=== PATIENT | female | born 1980 | race Caucasian/White ===

== ENCOUNTER 2025-01-23 10:51 | Inpatient (IN) | payer MEDICAID ==
[~2025-01-23] VITALS: Ht 157.5 cm; Wt 135.0 kg
--- NOTE | 2025-01-23 11:02 | ELECTROCARDIOGRAPH REPORT ---
[facility] Test Date: 2025-01-23 Test Time: 11:00:58 Pat Name: SANTO FAYE Department: EMERGENCY ROOM Room: Gender: F Parts Sales Counterperson: BRY : 1980 Requested By: AMARI GARCIA Order Number: [id number] Reading MD: Measurements Intervals [place] Rate: 71 P: 34 CT: 150 QRS: 27 QRSD: 89 T: 56 QT: 415 QTc: 451 Interpretive Statements Sinus rhythm Abnormal R-wave progression, early transition Borderline T wave abnormalities Please click the below link to view image of tracing.
--- NOTE | 2025-01-23 11:16 | Physician Documentation ---
History of Present Illness ~ Chief Complaint: Chest Pain Stated Complaint: STEMI Time Seen by MD: 10:57 HPI 44-year-old female presenting with chest pain that started last night about 7:00 p.m.. Patient states that she was at home and was not doing anything strenuous when the pain started. Pain is left-sided and radiates up into her neck and her left arm. Patient reports that initially it was severe but now has improved to a more moderate level after she was given pain medication in route to this hospital. The patient was initially seen at [facility] and diagnosed with a NSTEMI. She was given a shot of Lovenox and transferred to this [facility]. She denies any shortness of breath, nausea, vomiting or any other associated symptoms. Medication Reconciliation Allergies: Coded Allergies: Penicillins (Verified Allergy, Severe, ANAPHYLAXIS, 01/23/25) amoxicillin (Verified Allergy, Severe, ANAPHYLAXIS, 01/23/25) Scheduled Buspirone Hcl* (Buspar*), 1.5 TAB PO Q12H, (Reported) Duloxetine HCl (Cymbalta), 1 CAP PO DAILY, (Reported) Empagliflozin (Jardiance), 1 TAB PO DAILY, (Reported) Famotidine (Famotidine), 1 TAB PO DAILY, (Reported) Gabapentin (Neurontin), 3 CAP PO TID, (Reported) Hyoscyamine Sulfate (Anaspaz), 1-2 TAB PO Q4H, (Reported) Insulin Glargine,Hum.rec.anlog (Lantus), 34 UNIT SQ HS, (Reported) Loratadine (Loratadine), 1 TAB PO DAILY, (Reported) Methocarbamol (Methocarbamol), 3 TAB PO Q8H, (Reported) Nicotine 21 MG Patch* (Habitrol 21 MG Patch*), 1 PATCH TOP DAILY, (Reported) Olanzapine (Zyprexa), 1 TAB PO BID, (Reported) Paliperidone Palmitate (Invega Sustenna), 1 SYR IM Q30D, (Reported) Pantoprazole Sodium (PROTONIX tablet), 1 TAB PO BID, (Reported) Ropinirole Hcl (Ropinirole Hcl), 1 TAB PO BID, (Reported) Sumatriptan Succinate* (Imitrex Tab*), 4 TAB PO DAILY, (Reported) Scheduled PRN Acetaminophen (Acetaminophen Extra Strength), 2 TAB PO TID PRN for pain, (Reported) Buspirone Hcl* (Buspar*), 1 TAB PO Q12H PRN for anxiety, (Reported) Ibuprofen (Ibuprofen), 1 TAB PO Q8H PRN for pain, (Reported) Lorazepam (Ativan), 1 TAB PO HS PRN for anxiety, (Reported) Ramelteon (Rozerem), 1 TAB PO HS PRN for sleep, (Reported) albuterol inhaler (Pro-Air Inhaler), 2 PUFFS INH Q4HPRN PRN for wheezing, (Reported) Discontinued Medications Acetazolamide (Acetazolamide), 1 TAB PO Q12H, (Reported) Discontinued Reason: patient no longer taking Amlodipine Besylate (Norvasc), 1 TAB PO DAILY, (Reported) Discontinued Reason: patient no longer taking Capsaicin (Capsaicin), 1 APPLIC TOP TID, (Reported) Discontinued Reason: patient no longer taking Metoclopramide Hcl* (Metoclopramide Hcl*), 1 TAB PO Q6H PRN for nausea/vomiting, (Reported) Discontinued Reason: completed med therapy Naloxone HCl (Naloxone HCl), 1 SPR CAREY PRN PRN for resp rate < 8/min or SBP < 90 , (Reported) Discontinued Reason: completed med therapy Oxycodone HCl (Oxycodone HCl), 0.5 TAB PO BID PRN for pain, (Reported) Discontinued Reason: patient no longer taking Scopolamine Hydrobromide (Transderm-Scop), 1 PATCH TOP Q72H, (Reported) Discontinued Reason: completed med therapy Sumatriptan Succinate* (Imitrex Tab*), 4 TAB PO DAILY PRN for headache, (Reported) Discontinued Reason: wrong med Sumatriptan* (Imitrex Nasal [place] 5mg*), 1 SPRAY NS PRN PRN for headache, (Reported) Discontinued Reason: patient no longer taking Tiotropium [place] (Spiriva), 2 PUFFS INH DAILY, (Reported) Discontinued Reason: patient no longer taking Triamcinolone Acetonide 0.1% Crm* (Kenalog 0.1% Crm*), 1 APPLIC TOP Q12H, (Reported) Discontinued Reason: patient no longer taking Past Medical History Past Medical History: Coronary Artery Disease, Diabetes, Psychosis Review of Systems All Other Systems at this time: Reviewed and Negative Physical Exam Vital Signs: Temperature: 98.4, Source: Oral, Heart Rate: 94, Respiratory Rate: 18, BP: 133/93, Pulse Oximetry: 98, Weight: 135.000 Oxygen Flow Rate: 0 Physical Exam I have reviewed the triage vitals. CONST: Well developed and well nourished. In no acute distress. Morbidly obese. HENT: Head Atraumatic EYES: Pupils are equal, round and reactive to light. Normal conjunctiva NECK: Normal range of motion. Supple. CARDIO: Normal rate and regular rhythm. No murmurs, rubs, or gallops. S1, S2. PULM/CHEST: No respiratory distress. Lungs clear to auscultation. No wheeze ABD: Soft and nontender. Nondistended. Bowel sounds normal. No guarding. : Exam deferred MSK: No edema. No deformity. NEURO: Alert and oriented to person, place and time. Moving all extremities SKIN: Warm and dry. PSYCH: Normal mood and affect. Good eye contact. Progress Results/Orders Results/Orders Orders - AMARI GARCIA MD Chest,Single View (01/23/25 10:53) Monitor (01/23/25 10:53) Saline Lock (01/23/25 10:53) Oxygen (01/23/25 10:53) Cbc/Diff (01/25/25 03:00) Cbc/Diff (01/26/25 03:00) Cbc/Diff (01/27/25 03:00) Cbc/Diff (01/28/25 03:00) Page Hospitalist (01/23/25 13:49) Fill Out Med Reconciliation (01/23/25 13:49) Completed Orders - AMARI GARCIA MD Chest,Single View (01/23/25 10:53) Cbc/Diff (01/23/25 10:53) PBNP (01/23/25 10:53) Electrocardiogram (01/23/25 10:53) Hs Troponin I W Calculations (01/23/25 10:53) Hs Troponin I W Calculations (01/23/25 12:53) Hs Troponin I W Calculations (01/23/25 13:53) CMP (01/23/25 10:57) Pt Inr (01/23/25 10:59) PTT (01/23/25 10:59) Fibrinogen (01/23/25 10:59) Morphine 4mg/Ml Inj. (Morphine Inj.) (01/23/25 11:20) Ondansetron Inj. (Zofran 4mg/2ml Vial) (01/23/25 11:20) Heparin 10,000 Unit/Ml 1ml (Heparin 10,0 (01/23/25 11:20) Heparin 25,000 Unit/250ml Bag (Heparin 2 (01/23/25 11:20) Heparin 10,000 Unit/Ml 1ml (Heparin 10,0 (01/23/25 11:20) Cbc/Diff (01/24/25 03:00) Clopidogrel Tablet (Plavix Tablet) (01/23/25 11:20) Aspirin 325mg Enteric-Coated (Ecotrin 32 (01/23/25 11:20) Message To Nursing (01/23/25 11:50) Cardiac Ptt (01/23/25 18:00) Hgb A1c (01/23/25 11:12) Vital Signs 01/23/25 01/23/25 01/23/25 01/23/25 10:58 11:13 11:48 12:12 Temp 98.4 Pulse 94 77 Resp 18 18 16 B/P (MAP) 133/93 107/77 (87) Pulse Ox 98 95 O2 Flow Rate 0 0 01/23/25 01/23/25 12:40 13:46 Pulse 98 Resp 18 13 B/P (MAP) 140/73 (95) Pulse Ox 94 O2 Flow Rate 0 Laboratory Tests Test 01/23/25 11:12 01/23/25 12:38 01/23/25 14:13 White Blood Count 6.9 Red Blood Count 4.41 Hemoglobin 13.8 Hematocrit 40.5 Mean Corpuscular Volume 91.9 Mean Corpuscular Hemoglobin 31.2 H Mean Corpuscular Hemoglobin Concent 34.0 Red Cell Distribution Width 13.4 Platelet Count 239 Mean Platelet Volume 8.5 Neutrophils (%) (Auto) 53.7 Lymphocytes (%) (Auto) 37.5 Monocytes (%) (Auto) 6.1 Eosinophils (%) (Auto) 1.8 Basophils (%) (Auto) 0.9 Neutrophils # (Auto) 3.7 Lymphocytes # (Auto) 2.6 Monocytes # (Auto) 0.4 Eosinophils # (Auto) 0.1 Basophils # (Auto) 0.1 CBC Comment Prothrombin Time 9.8 INR International Normalized Ratio 1.0 Activated Partial Thromboplast Time 30 Fibrinogen 347 Coagulation Comments Coagulation Clinical Comments Sodium Level 137 Potassium Level 4.1 Chloride Level 107 Carbon Dioxide Level 22.6 L Anion Gap 7 L Blood Urea Nitrogen 8 Creatinine 0.60 Estimated GFR/1.73 m2 > 90 BUN/Creatinine Ratio 13.3 Glucose Level 148 H Hemoglobin A1c 8.1 H Calcium Level 8.6 Total Bilirubin 0.3 Aspartate Amino Transf (AST/SGOT) 24 Alanine Aminotransferase (ALT/SGPT) 35 Alkaline Phosphatase 104 Troponin I High Sensitivity 23 21 18 Pro-B-Type Natriuretic Peptide 51 Total Protein 7.1 Albumin 3.2 L Globulin 3.9 Albumin/Globulin Ratio 0.8 L Chemistry Comments Troponin I High Sens Percent Delta 8 14 Troponin I Hi Sens Absolute Change -2 -3 APTT (Heparin Protocol) 43 L EKG/XRAY/CT/US/VASC/MRI EKG : Additional Comment EKG as interpreted by ED MD indicating normal sinus rhythm with a rate of 71 beats per minute, no signs of ischemia, normal axis Medical Decision Making Additional Information 44-year-old female presenting via transfer for a NSTEMI. Patient initially had chest pain which has improved in the ED after she was giving pain medication and route. Patient had some continued chest pain here and was given a further 4 mg of IV morphine as well as 4 mg of IV ondansetron. Prior to arrival at previous hospital the patient had elevated troponins and was given a Lovenox injection. A CT angiogram also was done there which was negative for any PE. We started the patient on a heparin drip. She was also given 325 mg of aspirin as well as 300 mg of Plavix p.o.. Her lab work here return unremarkable with normal troponins. The heparin was stopped due to the normal troponins however the patient still needs admission for further treatment and care - cardiac evaluation and risk stratification. Report called to hospitalist team who accepted the patient. Departure Disposition: ADMITTED INPATIENT Admission Level of Care: Med/Surg with Tele Impression: Primary Impression: Chest pain Additional Impression: Unstable angina Condition: Guarded Referrals: NO PRIMARY CARE PROVIDER (PCP) Signature Scribe Signature: 1 Attestation: 1 AMARI GARCIA MD Jan 23, 2025 11:16
[2025-01-23] MEDS ORDERED: heparin 10,000 units/1 ML INJ IV PRN (11:20)
[2025-01-23 11:32] LABS: MEAN PLATELET VOLUME 8.5 FL (7.4-10.4); RED CELL DISTRIBUTION WIDTH 13.4 % (11.5-14.5)
--- NOTE | 2025-01-23 11:46 | RADIOLOGY REPORT ---
CHEST RADIOGRAPH Indication: CP Technique: Single frontal view of the chest was obtained COMPARISON: None FINDINGS: Lines and Tubes: None Lungs: Clear Pleura: No effusion. No pneumothorax. Cardiomediastinal contours: Unremarkable Bones: Unremarkable IMPRESSION: No acute disease.
[2025-01-23 11:48] LABS: APTT 30 SECONDS (22-32); INR 1.0 INR
[2025-01-23] MEDS: morphine 4 MG/ML inj SYRINge IV ONE (11:48)
[2025-01-23] MEDS: ondansetron/PF 4mg/2ml inj IV ONE (11:48)
[2025-01-23] MEDS: heparin 25,000 UNIT/250ml bag 250 ML IV PRN (12:04)
[2025-01-23] MEDS: heparin 10,000 units/1 ML INJ IV ONE (12:05)
[2025-01-23] MEDS: MESSAGE TO NURSING IV ONE (12:07)
[2025-01-23] MEDS: aspirin 325mg tablet, delayed-release (Ecotrin) PO ONE (12:10)
[2025-01-23 12:11] LABS: CREATININE 0.60 MG/DL (0.40-0.90); TOTAL CARBON DIOXIDE 22.6 MMOL/L (24-32); eCRCL 96 ML/MIN; eGFR > 90 ML/MIN
[2025-01-23 12:17] LABS: PRO BRAIN NATRIURETIC PEPTIDE 51 PG/ML (0-125)
[2025-01-23] MEDS ORDERED: potassium Cl 20 mEq SR tablet PO PRN ×2 (14:55)
[2025-01-23] MEDS ORDERED: magnesium hydroxide 30ml (MOM) UD suspension PO PRN (14:55)
[2025-01-23] MEDS ORDERED: magnesium sulf-water 2g/50mL 50 ML IV PRN (14:55)
[2025-01-23] MEDS ORDERED: magnesium sulf-water 4G/100mL 100 ML IV PRN (14:55)
[2025-01-23] MEDS ORDERED: potassium Cl 40MEQ/1/2NS 520ml 520 ML IV PRN (14:55)
[2025-01-23] MEDS ORDERED: magnesium Cl slow-release 64mg tablet PO PRN (14:55)
[2025-01-23] MEDS ORDERED: mag hydrox/Alum hydrox/simeth 30ml oral suspension PO PRN (14:55)
--- NOTE | 2025-01-23 15:17 | HISTORY AND PHYSICAL-Residence ---
History & Physical Providers to CC Resident Creating Document: SHEA HUDDLESTON RES ~ History of Present Illness Primary Medical Doctor: JENNA Reason for Admit\Complaint: Chest pain History of Present Illness This is a 43-year-old female patient with a history of morbid obesity, diabetes insulin dependent, hypertension, migraine, presents for chest pain that started yesterday at 8:00 p.m. while the patient was resting. Patient describes the pain as a sharp sensation radiating to the left shoulder, worse with movement and improving with rest. Yesterday the pain was 10 in 10 intensity but she still complains of persistent chest pain, now 6/10. Patient used cocaine three days ago. She was initially evaluated in [facility] and was found to have mildly elevated troponin of 21 (reference range less than 11.6 ), even though the troponin was negative afterwards. She denies shortness or breath, nausea, dizziness, fever, cough or any other associated symptoms at this moment. She was treated in the emergency room with aspirin 325 mg, Plavix 300 mg and heparin drip. Allergies: Coded Allergies: Penicillins (Verified Allergy, Severe, ANAPHYLAXIS, 01/23/25) amoxicillin (Verified Allergy, Severe, ANAPHYLAXIS, 01/23/25) Past Medical History Past Medical History morbid obesity, diabetes, hypertension, migraine Past Surgical History Surgical History Comment Cholecystectomy nine years ago Tonsillectomy as a child Past Social History Social History Comment Patient has been smoking 4 cigarettes a day for the last few months. The patient used to smoke two packs of cigarettes a day beginning when she was 10 year-old. Patient quit alcohol use four years ago Patient uses marijuana and cocaine Smoking: Cigarettes Alcohol Use: Sober Drug Use: Marijuana, Cocaine Lives with: Spouse Lives In: Home Occupation: disabled ROS All Other Systems: Reviewed and Negative Constitutional: Reports: no symptoms reported Eyes: Reports: no symptoms reported ENT: Reports: no symptoms reported Respiratory: Reports: no symptoms reported Cardiovascular: Reports: see HPI Gastrointestinal: Reports: no symptoms reported Genitourinary: Reports: no symptoms reported Female Genitalia: Reports: no reported symptoms Neurological: Reports: no symptoms reported Musculoskeletal: Reports: no symptoms reported Integumentary: Reports: no symptoms reported Allergic/Immunologic: Reports: no symptoms reported Hematologic/Lymphatic: Reports: no symptoms reported Endocrine: Reports: no symptoms reported Psychiatric: Reports: no symptoms reported Exam Vitals: Vital Signs Date Time Temp Pulse Resp B/P (MAP) Pulse Ox O2 Delivery O2 Flow Rate FiO2 01/23/25 13:46 98 13 140/73 (95) 94 0 01/23/25 10:58 98.4 General: General: Awake and Alert, no acute distress. HEENT: Conjunctiva pink, Sclera clear, Mucus Membranes moist. Neck: Supple without masses and tenderness. Resp: Unlabored. Lungs clear to auscultation bilaterally. Heart: Regular Rate and rhythm, normal S1 and S2 without murmur, rub or gallop. Abdomen: Soft and non tender no organomegaly Extremities: No cyanosis,clubbing or edema. Skin: Warm and Dry. Diagnostic Data Last Recorded Lab Results: 01/23/25 1112 01/23/25 1112 Diagnostic Data: Laboratory Tests Test 01/23/25 11:12 01/23/25 14:13 Prothrombin Time 9.8 SECONDS (9.0-12.0) INR International Normalized Ratio 1.0 INR Activated Partial Thromboplast Time 30 SECONDS (22-32) Fibrinogen 347 MG/DL (177-424) Coagulation Clinical Comments APTT (Heparin Protocol) 43 SECONDS (45-60) L Coagulation Comments Counseling Services Smoking & Tobacco Cessation: 3-10 Minutes Advance Care Planning Advanced Care plannin - 30 Minutes (I discussed with advanced care directives with the patient and she decided to be full code) Problems: (1) Chest pain Status: Acute Assessment & Plan: Chest pain - possible unstable angina CTA in [facility] negative for PE and aortic dissection Troponin only elevated at presentation in [facility](Troponin 21 - Reference is less than 11.6), then back to normal Ordered echocardiogram Ordered lipid panel Continue aspirin and Plavix for now Started on lisinopril 10 mg daily, carvedilol 3.125 mg b.i.d. and atorvastatin 40 mg daily Hold heparin drip Ordered Lexiscan considering multiple risk factors and persistent pain History of diabetes Ordered A1c Medium hyper/hypoglycemia protocol History of hypertension Continue home medication after med reconciliation History of illicit drug abuse Social service and substance use navigator consulted Code Status: Full code DVT prophylaxis: Heparin Analgesia/sedation: Morphine/[place] Line/tube: PIV GI prophylaxis: None Nutrition: Healthy/carb 75g diet. NPO after midnight. Prognosis: Guarded Disposition: Continue medical treatment. Pending med reconciliation. Date of Service: Jan 23, 2025 Billing Provider: ALEXA WANG MD Common Visit Codes: [id number] INP/OBS CARE (HIGH) Secondary Visit Codes: [id number] CARE PLAN 30 MINUTES SHEA HUDDLESTON, RES Jan 23, 2025 15:17 ALEXA WANG MD Jan 24, 2025 20:46
[2025-01-23] MEDS ORDERED: glucagon, human recombinant 1mg kit SUBCUT PRN (15:20)
[2025-01-23] MEDS ORDERED: dextrose 50%-water 50ml dispensing syringe IV PRN ×2 (15:20)
[2025-01-23] MEDS ORDERED: DEXTROSE 15 GM of carb/4 tabs (each vial/BOTTLE has 4 tablets) PO PRN ×2 (15:20)
[2025-01-23] MEDS: HYDROcodone/acetaminophen 5mg/325mg tablet PO PRN (15:34)
[2025-01-23 16:17] LABS: URINE AMPHETAMINE SCREEN NEGATIVE (Neg); URINE BARBITUATE SCREEN NEGATIVE (Neg); URINE BENZODIAZEPINES SCREEN NEGATIVE (Neg); URINE CANNABINOID SCREEN POSITIVE (Neg); URINE COCAINE SCREEN NEGATIVE (Neg); URINE METHADONE SCREEN NEGATIVE (Neg); URINE OPIATE SCREEN POSITIVE (Neg); URINE PHENCYCLIDINE SCREEN NEGATIVE (Neg)
[2025-01-23 17:00] VITALS: BP 152/72; PULSE 82; RESP 15; TEMP 97.6; O2SAT 98
[2025-01-23] MEDS: INSULIN LISPRO 100 UNIT/ML INSULN.PEN MULTI-DOSE SQ SCH (17:00)
[2025-01-23] MEDS ORDERED: metoprolol tartrate 1mg/ml inj IV PRN (17:25)
[2025-01-23] MEDS ORDERED: aminophylline 500mg/20ml vial IV PRN (17:25)
[2025-01-23] MEDS ORDERED: METO10TA3 PO (17:37)
[2025-01-23] MEDS ORDERED: ACET250T29 PO (17:37)
[2025-01-23] MEDS ORDERED: DULO60CA59 PO (17:37)
[2025-01-23] MEDS ORDERED: OLAN-40 PO (17:37)
[2025-01-23] MEDS ORDERED: LORA10TA7 PO (17:37)
[2025-01-23] MEDS ORDERED: LORA-268 PO (17:37)
[2025-01-23] MEDS ORDERED: RAME8TAB15 PO (17:37)
[2025-01-23] MEDS ORDERED: NICO-687 TOP (17:37)
[2025-01-23] MEDS ORDERED: ACET-2006 PO (17:37)
[2025-01-23] MEDS ORDERED: GABA300C PO (17:37)
[2025-01-23] MEDS ORDERED: PALI234D IM (17:37)
[2025-01-23] MEDS ORDERED: SCOP1PAT11 TOP (17:37)
[2025-01-23] MEDS ORDERED: NALO4SPR22 NAS (17:37)
[2025-01-23] MEDS ORDERED: CAPS42.514 TOP (17:37)
[2025-01-23] MEDS ORDERED: SUMA5SPR6 NS (17:37)
[2025-01-23] MEDS ORDERED: ALBU8HFA INH (17:37)
[2025-01-23] MEDS ORDERED: SUMA25TA35 PO (17:37)
[2025-01-23] MEDS ORDERED: TIOT18CA3 INH (17:37)
[2025-01-23] MEDS ORDERED: KEN0.1O TOP (17:37)
[2025-01-23] MEDS ORDERED: IBUP-1985 PO (17:37)
[2025-01-23] MEDS ORDERED: FAMO40TA58 PO (17:37)
[2025-01-23] MEDS ORDERED: INSU100V9 SQ (17:37)
[2025-01-23] MEDS ORDERED: EMPA10TA PO (17:37)
[2025-01-23] MEDS ORDERED: [UNRECOGNIZED DRUG - CODE] PO (17:37)
[2025-01-23] MEDS ORDERED: AMLO5TAB5 PO (17:37)
[2025-01-23] MEDS ORDERED: HYOS0.127 PO (17:37)
[2025-01-23] MEDS ORDERED: ROPI2TAB29 PO (17:37)
[2025-01-23] MEDS ORDERED: BUSP10TA11 PO (17:37)
[2025-01-23] MEDS ORDERED: PANT-47 PO (17:37)
[2025-01-23] MEDS ORDERED: METH-797 PO (17:49)
[2025-01-23 18:00] VITALS: BP 143/74; PULSE 70; RESP 16; TEMP 97.8; O2SAT 97
[2025-01-23 18:11] VITALS: RESP 15; O2SAT 98
[2025-01-23] MEDS: docusate sod 100mg capsule PO SCH (19:49)
[2025-01-23] MEDS: heparin, porcine 5000 units/ml vial SQ SCH (19:50)
[2025-01-23 20:00] VITALS: RESP 16; O2SAT 97
[2025-01-23] MEDS: K and/or MAG REPLACEMENT MC SCH (20:00)
[2025-01-23] MEDS: insulin glargine (Lantus) pen - multi-dose SQ SCH (21:55)
[2025-01-23 22:00] VITALS: BP 128/78; PULSE 80; RESP 19; TEMP 97; O2SAT 97
[2025-01-24] VITALS (14 sets, daily range): BP systolic 124–146; BP diastolic 59–94; PULSE 63–137; RESP 12–24; TEMP 97–97.6; O2SAT 96–100
[2025-01-24 06:11] LABS: MEAN PLATELET VOLUME 8.5 FL (7.4-10.4); RED CELL DISTRIBUTION WIDTH 13.2 % (11.5-14.5)
[2025-01-24 06:28] LABS: CHOL/HDL RATIO 3.7 (0.00-4.99); CREATININE 0.52 MG/DL (0.40-0.90); LDL CHOLESTEROL 101 MG/DL (50-100); TOTAL CARBON DIOXIDE 22.1 MMOL/L (24-32); eCRCL 110 ML/MIN; eGFR > 90 ML/MIN
[2025-01-24] MEDS: aspirin 81mg, enteric-coated 1 TAB TABLET.DR PO SCH (07:06)
[2025-01-24] MEDS ORDERED: ACETAMINOPHEN PO PRN (08:30)
[2025-01-24] MEDS ORDERED: albuterol 2.5 MG/3 ML nebule NEB PRN (08:30)
[2025-01-24] MEDS ORDERED: aminophylline 250mg/10ml inj. IV PRN (10:18)
[2025-01-24] MEDS: regadenoson 0.4mg/5ml syringe IV PRN (10:32)
--- NOTE | 2025-01-24 11:43 | RADIOLOGY REPORT ---
Procedure: NM NM KEN SCAN Exam Date: 01/24/2025 09:58 AM Reason for study/Clinical History: chest pain Comparison Study: None Myocardial Perfusion Study with SPECT Technique: The patient received an intravenous injection of 10 mCi of technetium-99m sestamibi while at rest. After a short delay, SPECT tomographic images of the heart were obtained. The patient the n went to the stress lab where they received an intravenous infusion of 0.4 mg lexiscan utilizing sta ndard protocol. 34 mCi of technetium-99m sestamibi was injected intravenously immediately after the start of the lexiscan infusion. Gated SPECT tomographic images of the heart were acquired and proce ssed. Findings: No reversible perfusion defect. End diastolic volume: 83 mL End systolic volume: 29 mL The left ventricular ejection fraction is 65 %. (normal greater than 50%) Impression: No reversible defect. The left ventricular ejection fraction is 65 %.
--- NOTE | 2025-01-24 12:12 | PROGRESS NOTE- Residence ---
Progress Note - Resident Providers to CC Resident Creating Document: SHEA HUDDLESTON RES ~ Antibiotic Timeout Antibiotic Ordered?: No Subjective Patient seen and examined at the bedside. She states that the chest pain is still present, however in less intensity than yesterday. The pain is worse when she walks and is better when she laid down. No overnight events reported. Objective Vital Signs Date Time Temp Pulse Resp B/P (MAP) Pulse Ox O2 Delivery O2 Flow Rate FiO2 01/24/25 11:52 97.0 81 16 144/94 (111) 97 Room Air 01/24/25 10:39 0.0 Result Diagram: 01/24/25 0542 01/24/25 0542 General: Awake and Alert, mildly agitated, no acute distress. HEENT: Conjunctiva pink, Sclera clear, Mucus Membranes moist. Neck: Supple without masses and tenderness. Resp: Unlabored. Lungs clear to auscultation bilaterally. Heart: Regular Rate and rhythm, normal S1 and S2 without murmur, rub or gallop. Abdomen: Soft and non tender no organomegaly Extremities: No cyanosis,clubbing or edema. Skin: Warm and Dry. Coagulation Studies Laboratory Tests Test 01/23/25 11:12 01/23/25 14:13 Prothrombin Time 9.8 SECONDS (9.0-12.0) INR International Normalized Ratio 1.0 INR Activated Partial Thromboplast Time 30 SECONDS (22-32) Fibrinogen 347 MG/DL (177-424) Coagulation Clinical Comments APTT (Heparin Protocol) 43 SECONDS (45-60) L Coagulation Comments Assessment Assessment This is a 43-year-old female patient with a history of morbid obesity, diabetes insulin dependent, hypertension, migraine, schizophrenia and anxiety, admitted for sharp chest pain that started while the patient was resting. She was initially evaluated in [facility] and was found to have mildly elevated troponin of 21 (reference range less than 11.6 ), even though the troponin was negative afterwards. She denies shortness of breath, nausea, dizziness, fever, cough or any other associated symptoms at this moment. Further workup has been negative. Plan Plan Chest pain - ACS ruled out Possibly induced after cocaine use. Costochondritis and psychosomatic pain cannot be excluded. Chest CTA in [facility] 01/22/2025: No CT evidence of acute central pulmonary embolus. Visualized portions of the aorta are unremarkable. Troponin only elevated at presentation in [facility] (troponin 21 - Reference is less than 11.6), then back to normal Ordered echocardiogram Ordered lipid panel Continue aspirin and Plavix for now Started on lisinopril 10 mg daily, carvedilol 3.125 mg b.i.d. and atorvastatin 40 mg daily Hold heparin drip Ordered Lexiscan considering multiple risk factors and persistent pain 01/24/2025 Lexiscan: No reversible defect. The left ventricular ejection fraction is 65 %. The left ventricular ejection fraction is 65 %. Triglycerides 123, cholesterol 176, LDL 101, HDL 47 Discontinue Plavix Atorvastatin reduced to 20 mg daily Pending echocardiogram History of diabetes Ordered A1c Medium hyper/hypoglycemia protocol 01/24/2025 A1c 8.1 Lantus 35 units at bedtime Continue Jardiance 10 mg Continue management as per protocol History of schizophrenia/anxiety Continue home medication History of hypertension Continue lisinopril 10 mg daily History of illicit drug abuse Social service and substance use navigator consulted Code Status: Full code DVT prophylaxis: Heparin Analgesia/sedation: Morphine/[place] Line/tube: PIV GI prophylaxis: Pantoprazole Nutrition: Healthy/carb 75g diet. Prognosis: Guarded Disposition: Continue medical treatment. Addendum ongoing cp, unclear etiol, musculoskeletal? pain meds Date of Service: Jan 24, 2025 Billing Provider: ALEXA WANG MD Common Visit Codes: [id number] INP/OBS CARE(HIGH) SHEA HUDDLESTON, RES Jan 24, 2025 12:12 ALEXA WANG MD Jan 24, 2025 20:48
[2025-01-24] MEDS: Methocarbamol 500 MG TABLET PO SCH (15:37)
[2025-01-24] MEDS: ondansetron/PF 4mg/2ml inj IV PRN (15:57)
[2025-01-24] MEDS: busPIRone 15mg tablet PO SCH (20:08)
[2025-01-24] MEDS: pantoprazole 40mg Tablet.DR PO SCH (20:08)
[2025-01-25 02:00] VITALS: BP 110/88; PULSE 76; RESP 20; TEMP 98.2; O2SAT 97
[2025-01-25 06:20] LABS: MEAN PLATELET VOLUME 8.7 FL (7.4-10.4); RED CELL DISTRIBUTION WIDTH 13.3 % (11.5-14.5)
[2025-01-25 06:49] LABS: CREATININE 0.59 MG/DL (0.40-0.90); TOTAL CARBON DIOXIDE 24.8 MMOL/L (24-32); eCRCL 97 ML/MIN; eGFR > 90 ML/MIN
[2025-01-25 07:00] VITALS: BP 127/79; PULSE 79; RESP 16; TEMP 97.4; O2SAT 95
[2025-01-25 08:00] VITALS: RESP 16; O2SAT 96
[2025-01-25] MEDS: duloxetine 30mg CAPSULE.DR PO SCH (08:08)
[2025-01-25] MEDS: EMPAGLIFLOZIN 10 MG TABLET PO SCH (08:10)
[2025-01-25] MEDS: nicotine 21mg patch - 24 hr TD SCH (08:21)
[2025-01-25] MEDS ORDERED: OXYC-150 PO (10:31)
[2025-01-25] MEDS: ketorolac trometh 30MG/ML vial 30 MG/ML VIAL IV ONE (10:46)
[2025-01-25 11:00] VITALS: BP 109/66; PULSE 67; RESP 16; TEMP 97.3; O2SAT 97
--- NOTE | 2025-01-25 18:37 | DISCHARGE SUMMARY-Residence ---
Discharge Summary Providers to CC Resident Creating Document: CHANA DALLAS CC: ALEXA WANG MD ~ Discharge Summary Admission Diagnosis: Chest pain Hospital Course DATE OF ADMISSION: 01/23/2025 DATE OF DISCHARGE: 01/25/2025 Discharge Diagnosis\Comment: Noncardiac chest pain likely 2/2 muscle spasms/costochondritis Possible GERD component ACS ruled out History of diabetes History of schizophrenia/anxiety History of hypertension History of illicit drug abuse Operations\Procedures: None Consultants: None Complications: None Condition on DC: Stable New Medications: Oxycodone HCl/Acetaminophen (Percocet 10-325 mg Tablet) 10 Mg-325 Mg Tablet 1 TAB PO QID PRN PRN for pain for 5 Days, #20 TAB 0 Refills Continued Medications: Acetaminophen (Acetaminophen Extra Strength) 500 Mg Tablet 2 TAB PO TID PRN for pain for 1 Day, #20 TAB albuterol inhaler (Pro-Air Inhaler) 8.5 Gm Inhaler 2 PUFFS INH Q4HPRN PRN for wheezing for 30 Days, #18 GM Buspirone Hcl* (Buspar*) 10 Mg Tablet 1.5 TAB PO Q12H for 30 Days, #60 TAB Buspirone Hcl* (Buspar*) 10 Mg Tablet 1 TAB PO Q12H PRN for anxiety for 30 Days, #60 TAB Duloxetine HCl (Cymbalta) 60 Mg Capsule.dr 1 CAP PO DAILY for 30 Days, #30 CAP 0 Refills Empagliflozin (Jardiance) 10 Mg Tablet 1 TAB PO DAILY for 30 Days, #30 TAB 0 Refills Gabapentin (Neurontin) 300 Mg Capsule 3 CAP PO TID for 30 Days, #90 CAP 0 Refills Hyoscyamine Sulfate (Anaspaz) 0.125 Mg Tab.rapdis 1-2 TAB PO Q4H for 2 Days, #6 TAB 0 Refills Ibuprofen (Ibuprofen) 600 Mg Tablet 1 TAB PO Q8H PRN for pain for 10 Days, #30 TAB 0 Refills with food Insulin Glargine,Hum.rec.anlog (Lantus) 100 Unit/Ml Vial 34 UNIT SQ HS, EACH Loratadine (Loratadine) 10 Mg Tablet 1 TAB PO DAILY for allergy symptoms for 30 Days, #30 TAB 0 Refills Lorazepam (Ativan) 0.5 Mg Tablet 1 TAB PO HS PRN for anxiety for 30 Days, #60 TAB 0 Refills Methocarbamol (Methocarbamol) 500 Mg Tablet 3 TAB PO Q8H for 30 Days, #90 TAB 0 Refills Nicotine 21 MG Patch* (Habitrol 21 MG Patch*) 1 Each Patch.td24 1 PATCH TOP DAILY for smoking cessation for 28 Days, #28 PATCH Olanzapine (Zyprexa) 20 Mg Tablet 1 TAB PO BID for 30 Days, #30 TAB 0 Refills Paliperidone Palmitate (Invega Sustenna) 234 Mg/1.5 Ml Syringe 1 SYR IM Q30D for 30 Days, #1.5 ML 0 Refills Pantoprazole Sodium (PROTONIX tablet) 40 Mg Tablet.dr 1 TAB PO BID for 30 Days, #30 TAB 0 Refills Ramelteon (Rozerem) 8 Mg Tablet 1 TAB PO HS PRN for sleep for 30 Days, #30 TAB 0 Refills Ropinirole Hcl (Ropinirole Hcl) 2 Mg Tab.er.24h 1 TAB PO BID for 30 Days, #30 TAB 0 Refills Sumatriptan Succinate* (Imitrex Tab*) 25 Mg Tablet 4 TAB PO DAILY, TAB give 4 tablets at onset of headache. May repeat in 2 hours as needed for headache. Do not exceed 200mg/day total. Discontinued Medications: Famotidine (Famotidine) 40 Mg Tablet 1 TAB PO DAILY for 30 Days, #30 TAB 0 Refills Discharge Summary: Patient was admitted with the following HPI: This is a 43-year-old female patient with a history of morbid obesity, diabetes insulin dependent, hypertension, migraine, presents for chest pain that started yesterday at 8:00 p.m. while the patient was resting. Patient describes the pain as a sharp sensation radiating to the left shoulder, worse with movement and improving with rest. Yesterday the pain was 10 in 10 intensity but she still complains of persistent chest pain, now 6/10. Patient used cocaine three days ago. She was initially evaluated in [facility] and was found to have mildly elevated troponin of 21 (reference range less than 11.6 ), even though the troponin was negative afterwards. She denies shortness or breath, nausea, dizziness, fever, cough or any other associated symptoms at this moment. She was treated in the emergency room with aspirin 325 mg, Plavix 300 mg and heparin drip. Hospital course: Patient was admitted with diagnosis of chest pain, to rule out acute coronary syndrome. Patient's EKG and troponins were unremarkable. Initially, there were concerns of stable angina and therefore a stress test was obtained. This was negative. Patient's chest pain improved significantly since admission, and no other interventions were required. She remained hemodynamically stable during hospital course. She was reassured and she will be discharge home with p.r.n. pain medication. Laboratory Tests Test 01/23/25 20:30 01/24/25 05:42 01/24/25 07:05 01/24/25 12:10 Glucometer 143 mg/dl 165 mg/dl 209 mg/dl White Blood Count 5.0 X10'3 Red Blood Count 4.24 X10'6 Hemoglobin 12.9 g/dl Hematocrit 38.5 % Mean Corpuscular Volume 90.6 FL Mean Corpuscular Hemoglobin 30.4 PG Mean Corpuscular Hemoglobin Concent 33.6 g/dL Red Cell Distribution Width 13.2 % Platelet Count 227 X10'3 Mean Platelet Volume 8.5 FL Neutrophils (%) (Auto) 54.3 % Lymphocytes (%) (Auto) 35.6 % Monocytes (%) (Auto) 7.5 % Eosinophils (%) (Auto) 1.7 % Basophils (%) (Auto) 0.9 % Neutrophils # (Auto) 2.7 X10'3 Lymphocytes # (Auto) 1.8 X10'3 Monocytes # (Auto) 0.4 X10'3 Eosinophils # (Auto) 0.1 X10'3 Basophils # (Auto) 0.0 X10'3 CBC Comment Sodium Level 138 MMOL/L Potassium Level 4.0 MMOL/L Chloride Level 108 MMOL/L Carbon Dioxide Level 22.1 MMOL/L Anion Gap 8 Blood Urea Nitrogen 7 MG/DL Creatinine 0.52 MG/DL Estimated GFR/1.73 m2 > 90 ML/MIN BUN/Creatinine Ratio 13.5 Glucose Level 128 MG/DL Calcium Level 8.1 MG/DL Magnesium Level 1.9 MG/DL Total Bilirubin 0.4 MG/DL Aspartate Amino Transf (AST/SGOT) 30 U/L Alanine Aminotransferase (ALT/SGPT) 41 U/L Alkaline Phosphatase 101 IU/L Troponin I High Sensitivity 13 ng/L Troponin I High Sens Percent Delta 27 % Troponin I Hi Sens Absolute Change -5 ng/L Total Protein 6.6 G/DL Albumin 2.9 G/DL Globulin 3.7 G/DL Albumin/Globulin Ratio 0.8 Triglycerides Level 123 MG/DL Cholesterol Level 176 MG/DL LDL Cholesterol 101 MG/DL HDL Cholesterol 47 MG/DL Cholesterol/HDL Ratio 3.7 Chemistry Comments Test 01/24/25 16:57 01/24/25 21:07 01/25/25 05:39 01/25/25 08:04 Glucometer 146 mg/dl 171 mg/dl 140 mg/dl White Blood Count 6.1 X10'3 Red Blood Count 4.27 X10'6 Hemoglobin 13.2 g/dl Hematocrit 38.9 % Mean Corpuscular Volume 91.2 FL Mean Corpuscular Hemoglobin 30.9 PG Mean Corpuscular Hemoglobin Concent 33.9 g/dL Red Cell Distribution Width 13.3 % Platelet Count 220 X10'3 Mean Platelet Volume 8.7 FL Neutrophils (%) (Auto) 58.3 % Lymphocytes (%) (Auto) 30.0 % Monocytes (%) (Auto) 9.6 % Eosinophils (%) (Auto) 1.3 % Basophils (%) (Auto) 0.8 % Neutrophils # (Auto) 3.5 X10'3 Lymphocytes # (Auto) 1.8 X10'3 Monocytes # (Auto) 0.6 X10'3 Eosinophils # (Auto) 0.1 X10'3 Basophils # (Auto) 0.0 X10'3 CBC Comment Sodium Level 139 MMOL/L Potassium Level 3.7 MMOL/L Chloride Level 108 MMOL/L Carbon Dioxide Level 24.8 MMOL/L Anion Gap 6 Blood Urea Nitrogen 8 MG/DL Creatinine 0.59 MG/DL Estimated GFR/1.73 m2 > 90 ML/MIN BUN/Creatinine Ratio 13.6 Glucose Level 145 MG/DL Calcium Level 8.5 MG/DL Magnesium Level 1.9 MG/DL Total Bilirubin 0.5 MG/DL Aspartate Amino Transf (AST/SGOT) 147 U/L Alanine Aminotransferase (ALT/SGPT) 115 U/L Alkaline Phosphatase 137 IU/L Total Protein 6.7 G/DL Albumin 2.9 G/DL Globulin 3.8 G/DL Albumin/Globulin Ratio 0.8 Chemistry Comments Test 01/25/25 12:34 Glucometer 137 mg/dl Imaging: Echocardiogram: Normal LV size and function. Moderate concentric hypertrophy. LVEF is 60-65%. RV appears mildly dilated with normal systolic function. The left atrium size appears normal. Probably trileaflet AV is not well visualized but appears grossly normal without stenosis or insufficiency. Mild MV annular calcification without stenosis. Trace regurgitation. TV appears structurally normal with trace regurgitation. Normal PV without stenosis, physiologic insufficiency. Aortic root is normal in size. IVC is dilated and collapses less than 50% with inspiration. Normal pericardium. No effusion. Lexiscan: No reversible defect. Chest x-ray: No acute disease. Discharge physical exam: Vital Signs Date Time Temp Pulse Resp B/P (MAP) Pulse Ox O2 Delivery O2 Flow Rate FiO2 01/25/25 10:46 16 01/25/25 08:07 79 01/25/25 08:00 96 Room Air 01/25/25 07:00 97.4 127/79 (95) 01/24/25 10:39 0.0 General: Obese habitus, awake, alert oriented to place, time, and person HEENT: No pallor present, no icterus, moist mucous membranes Neck: No masses and tenderness Resp: Unlabored. Lungs clear to auscultation bilaterally. Chest: Normal expansion Cardiovascular: Regular Rate and rhythm, normal S1 and S2 without murmur, rub or gallop Abdomen: Soft and nontender, no organomegaly, no guarding and rigidity, bowel sounds present Neuro: No focal weakness in the upper and lower limb muscles, power of the muscles 5/5 bilateral upper and lower extremities, normal reflexes bilaterally. Cranial nerves intact Extremities: No cyanosis,clubbing or edema Skin: Warm and Dry. No lesions Psych: Slightly anxious but cooperative with the care Disposition: Patient will be discharged home with the following recommendations: Continue all medications as prescribed Follow up with your PCP within one week Please return to the ED if you experience any increasing chest pain, palpitation, shortness of breaths or any other concerning symptoms *Problems/Diagnosis: (1) Chest pain Status: Acute Total Time Spent on D/C: > 30 Minutes Date of Service: Jan 25, 2025 Billing Provider: ALEXA WANG MD Common Visit Codes: 28743-EGN/OBS DISCH DAY >30min CHANA DALLAS Jan 25, 2025 18:36 ALEXA WANG MD Jan 26, 2025 07:55
--- NOTE | 2025-01-25 18:42 | CARDIOLOGY REPORT ---
APPROVED REPORT EXAM: Comprehensive 2D, Doppler, and color-flow Echocardiogram. Patient Location: [address] Blood Pressure: 127/79 mmHg Heart Rate: 71 bpm Rhythm: SINUS Indications CORONARY ARTERY DISEASE DIABETES MELLITUS HYPERTENSION Numerologist: none Previous echo: none 2D Dimensions IVSd 1.4 (0.7-1.1cm) LVDd 3.9 cm PWd 1.6 (0.7-1.1cm) IVSs 1.5 (0.8-1.2cm) LVDs 2.6 (2.5-4.0cm) PWs 1.5 (0.8-1.2cm) LVOT Diameter 2.41 (1.8-2.4cm) LVEF(%) 62.5 (>50%) IVC 22.29 mmFS (%) 33.2 % SV 41.1 ml CO 4.1 L/min M-Mode Dimensions Left Atrium(MM) 3.42 (2.5-4.0cm) Aortic Root 3.25 (2.2-3.7cm) Aortic Cusp Exc 2.31 (1.5-2.0cm) Aortic Valve AoV Peak Bernard. 133.6 cm/s AoV VTI 28.2 cm AO Peak GR. 7.1 mmHg AO Mean GR. 4 mmHg LVOT VTI 18.72 cm LVOT Peak Bernard. 101.2 cm/s MARIS(VTI)/BSA 3.02 cm2/m2 MARIS (VTI) 3.02 cm2 Mitral Valve MV E Velocity 95.1 cm/s MV Peak Gr. 5 mmHg MV DECEL TIME 252 ms MV A Velocity 81.6 cm/s MV PHT 72 ms E/A Ratio 1.2 MVA (PHT) 3.06 cm2 MV RBpd198.9 cm/s TDI Medial E' P. V 7.87 cm/s E/Medial E' 12.1 Pulmonary Vein S1 Velocity 39.2 cm/s D2 Velocity 46.5 cm/s PVa [id number] cm/s PVa [id number] msec LEFT VENTRICLE Normal LV size and function. Moderate concentric hypertrophy. LVEF is 60-65%. RIGHT VENTRICLE RV appears mildly dilated with normal systolic function. ATRIA The left atrium size appears normal. AORTIC VALVE Probably trileaflet AV is not well visualized but appears grossly normal without stenosis or insuffic iency. MITRAL VALVE Mild MV annular calcification without stenosis. Trace regurgitation. TRICUSPID VALVE TV appears structurally normal with trace regurgitation. PULMONIC VALVE Normal PV without stenosis, physiologic insufficiency. GREAT VESSELS Aortic root is normal in size. IVC is dilated and collapses less than 50% with inspiration. PERICARDIUM Normal pericardium. No effusion. Other Information Study Quality: Adequate Conclusion Normal LV size and function. Moderate concentric hypertrophy. LVEF is 60-65%. RV appears mildly dilated with normal systolic function. The left atrium size appears normal. Probably trileaflet AV is not well visualized but appears grossly normal without stenosis or insuffic iency. Mild MV annular calcification without stenosis. Trace regurgitation. TV appears structurally normal with trace regurgitation. Normal pericardium. No effusion.
[2025-02-22] MEDS ORDERED: paliperidone palmitate inj 234 MG/1.5 ML SYRINGE IM SCH (08:30)
== END 2025-01-25 15:32 | disposition home or self-care (01) | DRG 351 ==
LOC: ER 10:52 → ED HOLD 14:23 → PCU 3S 15:51
PROVIDERS: ADMIT Internal Medicine; ATTEND Internal Medicine
PROC: 4A02XM4 Measurement of Cardiac Total Activity, External Approach (ICD-10-PCS; principal; 2025-01-24)
PROC: 3E073KZ Introduction of Other Diagnostic Substance into Coronary Artery, Percutaneous Approach (ICD-10-PCS; 2025-01-24)
DX: M62.838 Other muscle spasm (principal); Z68.43 Body mass index [BMI] 50.0-59.9, adult; M94.0 Chondrocostal junction syndrome [Tietze]; E11.9 Type 2 diabetes mellitus without complications; F20.9 Schizophrenia, unspecified; I10 Essential (primary) hypertension; F41.9 Anxiety disorder, unspecified; K21.9 Gastro-esophageal reflux disease without esophagitis; G43.909 Migraine, unspecified, not intractable, without status migrainosus; E66.01 Morbid (severe) obesity due to excess calories; I25.10 Atherosclerotic heart disease of native coronary artery without angina pectoris
CPT/HCPCS: 36415; 71045; 78452; 80053; 80061; 80305; 82948; 83036; 83735; 83880; 84484; 85025; 85384; 85610; 85730; 87081; 93005; 93017; 93306; 96374; 96375; 96376; 97116; 97161; 97530; 99285; A9500; G0378; J1644; J1815; J1885; J2270; J2405; J2785